=== PATIENT | male | born 1965 | race Caucasian/White ===

== ENCOUNTER 2017-11-30 04:44 | Emergency (ER) | payer OTHER ==
[~2017-11-30] VITALS: Ht 182.9 cm; Wt 102.1 kg
[~2017-11-30 04:44] MED LIST: APAP/CODEINE ELI5 M1 OR; ASPIR-TRIN325 MG PO; ASPIRIN325; ATENOLOL 50 MG50 M1; IBUPROFEN 800800 M1 PO; KEFLEX500 MG PO; LIPITOR40 MG PO; LISINOPRIL2.5 MG; MEDROL DOSPAK21 TA1 PO; MUCINEX TA600 MG/TA2 PO; NASONEX17 GM; NITROGLYCERIN0.4 MG; NORCO 5-325 TA1 EACH PO; OMEGA-3 FISH O1 EAC4; ONDANSETRON HCL4 M2 PO; PATANASE30.5 GM NS; PENICILLIN VK500 M1 PO; PENICILLIN VK500 MG PO; PLAVIX 75 MG TA75 MG; PT UNSURE OF MEDS; TRIAM60 TP; XANAX 0.5 MG0.5 M1 PO; ZOCOR40 MG; ZOLOFT25 MG PO; ZPAK PO
[2017-11-30 05:59] LABS: URINE BILIRUBIN NEGATIVE (Negative); URINE BLOOD NEGATIVE (Negative); URINE CLARITY CLEAR; URINE COLOR YELLOW; URINE GLUCOSE-RANDOM* NEGATIVE (Negative); URINE KETONES NEGATIVE (Negative); URINE NITRITE-REFLEX NEGATIVE (Negative); URINE PROTEIN (DIPSTICK) NEGATIVE (Negative); URINE SPECIFIC GRAVITY 1.015 (1.005-1.035); URINE UROBILINOGEN 0.2 E.U./dl (0.2-1.0)
[2017-11-30 06:02] LABS: URINE LEUKOCYTES-REFLEX TRACE (Negative)
[2017-11-30 06:07] LABS: AMP/METHAMP Negative (Negative); BARBITURATES Negative (Negative); BENZODIAZEPINES Negative (Negative); COCAINE Negative (Negative); METHADONE Negative (Negative); OPIATES Negative (Negative); PCP Negative (Negative)
[2017-11-30] MEDS ORDERED: XANAX 0.5 MG0.5 MG PO (06:17)
[2017-11-30 07:11] LABS: HEMATOCRIT 44.4 % (42.0-52.0); HEMOGLOBIN 15.2 gm/dL (14.0-18.0); MCH 29.8 pg (26.0-34.0); MCHC 34.2 g/dL (28.0-37.0); MCV 87.2 fL (80.0-100.0); RBC 5.09 mil/uL (4.50-6.00); RDW 13.7 % (10.5-14.5); WBC 11.4 thou/uL (4.0-11.0)
[2017-11-30 07:19] LABS: ANION GAP 11 mmol/L (7-16); BUN 15 mg/dL (7-18); CALCIUM 9.3 mg/dL (8.5-10.1); CHLORIDE 106 mmol/L (98-107); CO2 24 mmol/L (21-32); CREATININE 1.5 mg/dL (0.7-1.3); GLUCOSE 105 mg/dL (74-106); POTASSIUM 4.1 mmol/L (3.5-5.1); SODIUM 141 mmol/L (136-145)
[2017-11-30 07:23] LABS: SALICYLATE < 2.8 mg/dL (2.8-20.0)
== END 2017-11-30 11:35 | disposition home or self-care (01) ==
LOC: ER 04:44
PROVIDERS: Emergency Medicine
DX: M79.641 Pain in right hand (principal); F41.9 Anxiety disorder, unspecified; G80.9 Cerebral palsy, unspecified; F10.99 Alcohol use, unspecified with unspecified alcohol-induced disorder; Z95.5 Presence of coronary angioplasty implant and graft; Z87.891 Personal history of nicotine dependence; Z88.6 Allergy status to analgesic agent; Z88.5 Allergy status to narcotic agent

== ENCOUNTER 2017-12-13 06:47 | Emergency (ER) | payer OTHER ==
[~2017-12-13] VITALS: Ht 182.9 cm; Wt 104.3 kg
[~2017-12-13 06:47] MED LIST changes: +XANAX 0.5 MG0.5 MG PO
[2017-12-13] MEDS ORDERED: IBUPROFEN 800800 MG PO (07:33)
== END 2017-12-13 07:45 | disposition home or self-care (01) ==
LOC: ER 06:47
DX: S86.911A Strain of unspecified muscle(s) and tendon(s) at lower leg level, right leg, initial encounter (principal); S86.912A Strain of unspecified muscle(s) and tendon(s) at lower leg level, left leg, initial encounter; Z87.891 Personal history of nicotine dependence; Z88.1 Allergy status to other antibiotic agents; Z88.5 Allergy status to narcotic agent; X58.XXXA Exposure to other specified factors, initial encounter; Y93.89 Activity, other specified; Y92.89 Other specified places as the place of occurrence of the external cause; Y99.8 Other external cause status

== ENCOUNTER 2018-01-09 04:31 | Emergency (ER) | payer OTHER ==
[~2018-01-09] VITALS: Ht 182.9 cm; Wt 102.1 kg
--- NOTE | ~2018-01-09 | EKG ---
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
[~2018-01-09 04:31] MED LIST changes: +IBUPROFEN 800800 MG PO
[2018-01-09 05:05] LABS: HEMATOCRIT 45.6 % (42.0-52.0); HEMOGLOBIN 15.6 gm/dL (14.0-18.0); MCH 30.3 pg (26.0-34.0); MCHC 34.3 g/dL (28.0-37.0); MCV 88.5 fL (80.0-100.0); RBC 5.16 mil/uL (4.50-6.00); RDW 13.9 % (10.5-14.5); WBC 10.4 thou/uL (4.0-11.0)
[2018-01-09 05:13] LABS: ANION GAP 12 mmol/L (7-16); BUN 18 mg/dL (7-18); CHLORIDE 104 mmol/L (98-107); CO2 24 mmol/L (21-32); CREATININE 1.4 mg/dL (0.7-1.3); GLUCOSE 111 mg/dL (74-106); POTASSIUM 3.3 mmol/L (3.5-5.1); SODIUM 140 mmol/L (136-145)
[2018-01-09 05:19] LABS: ALBUMIN 3.8 g/dL (3.4-5.0); DIRECT BILIRUBIN < 0.1 mg/dL (<0.1-0.3); LIPASE 387 U/L (73-393); SGOT 16 U/L (15-37); SGPT 27 U/L (30-65); TOTAL BILIRUBIN 0.2 mg/dL (<0.1-1.0); TOTAL PROTEIN 7.7 g/dL (6.4-8.2)
== END 2018-01-09 06:55 | disposition home or self-care (01) ==
LOC: ER 04:31
PROVIDERS: Emergency Medicine
DX: K29.70 Gastritis, unspecified, without bleeding (principal); F10.129 Alcohol abuse with intoxication, unspecified; F41.9 Anxiety disorder, unspecified; Z87.891 Personal history of nicotine dependence; Z88.5 Allergy status to narcotic agent; Z88.8 Allergy status to other drugs, medicaments and biological substances; Z95.5 Presence of coronary angioplasty implant and graft

== ENCOUNTER 2018-08-20 17:37 | Emergency (ER) | payer OTHER ==
[~2018-08-20] VITALS: Ht 182.9 cm; Wt 99.3 kg
--- NOTE | ~2018-08-20 | EKG ---
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
[2018-08-20 18:31] LABS: HEMATOCRIT 41.4 % (42.0-52.0); HEMOGLOBIN 14.2 gm/dL (14.0-18.0); MCH 30.5 pg (26.0-34.0); MCHC 34.3 g/dL (28.0-37.0); MCV 88.9 fL (80.0-100.0); RBC 4.66 mil/uL (4.50-6.00); RDW 13.4 % (10.5-14.5); WBC 9.5 thou/uL (4.0-11.0)
[2018-08-20 18:39] LABS: URINE BILIRUBIN NEGATIVE (Negative); URINE BLOOD NEGATIVE (Negative); URINE CLARITY CLEAR; URINE COLOR YELLOW; URINE GLUCOSE-RANDOM* NEGATIVE (Negative); URINE KETONES NEGATIVE (Negative); URINE LEUKOCYTES NEGATIVE (Negative); URINE NITRITE NEGATIVE (Negative); URINE PROTEIN (DIPSTICK) TRACE (Negative); URINE SPECIFIC GRAVITY 1.025 (1.005-1.035); URINE UROBILINOGEN 0.2 E.U./dl (0.2-1.0)
[2018-08-20 18:44] LABS: ANION GAP 7 mmol/L (7-16); BUN 19 mg/dL (7-18); CALCIUM 9.4 mg/dL (8.5-10.1); CHLORIDE 105 mmol/L (98-107); CO2 25 mmol/L (21-32); CREATININE 1.6 mg/dL (0.7-1.3); GLUCOSE 94 mg/dL (74-106); POTASSIUM 3.6 mmol/L (3.5-5.1); SODIUM 137 mmol/L (136-145)
[2018-08-20 18:53] LABS: TROPONIN-I <0.06 ng/mL (<0.06)
[2018-08-20 19:35] VITALS: BP 148/88
== END 2018-08-20 19:37 | disposition home or self-care (01) ==
LOC: ER 17:37
PROVIDERS: Physician Assistant
DX: F41.9 Anxiety disorder, unspecified (principal); R42 Dizziness and giddiness; Z95.5 Presence of coronary angioplasty implant and graft; Z87.891 Personal history of nicotine dependence; Z88.1 Allergy status to other antibiotic agents; Z88.5 Allergy status to narcotic agent

== ENCOUNTER 2019-04-04 11:33 | Emergency (ER) | payer OTHER ==
[~2019-04-04] VITALS: Ht 182.9 cm; Wt 103.0 kg
[2019-04-04 11:52] VITALS: BP 123/82
== END 2019-04-04 12:18 | disposition home or self-care (01) ==
LOC: ER 11:33
DX: F41.9 Anxiety disorder, unspecified (principal); G80.9 Cerebral palsy, unspecified; Z87.891 Personal history of nicotine dependence; Z88.5 Allergy status to narcotic agent

== ENCOUNTER 2020-07-20 21:21 | Emergency (ER) | payer OTHER ==
[~2020-07-20] VITALS: Ht 182.9 cm; Wt 102.1 kg
[2020-07-20 22:07] VITALS: BP 147/82
== END 2020-07-20 22:33 | disposition home or self-care (01) ==
LOC: ER 21:21
DX: F41.0 Panic disorder [episodic paroxysmal anxiety] (principal); Z95.5 Presence of coronary angioplasty implant and graft; Z79.899 Other long term (current) drug therapy; Z79.82 Long term (current) use of aspirin; Z88.6 Allergy status to analgesic agent; Z87.891 Personal history of nicotine dependence

== ENCOUNTER 2021-04-02 02:41 | Emergency (ER) | payer OTHER ==
[~2021-04-02] VITALS: Ht 182.9 cm; Wt 102.1 kg
--- NOTE | ~2021-04-02 | EMS ---
[place] [id number] [place] Patient Care Report Name: LEIGHTON RAGSDALE Room #: DEP ROSARIO Levi#: [id number] Admission: 04/02/21 Attend Phys: Discharge: 04/02/21 Date of : 65 Report #: [id number] THIS REPORT FOR: //name// Report Transmitted: 04/02/2021 23:00 EMS Care Summary [place], [place]/[facility] Incident [id number] @ 04/02/2021 02:10 Incident Location [address] [place] [address] Patient LEIGHTON RAGSDALE Male, 56 Years 1965 Patient Address [address] [address] [place] [id number] Patient History Cardiac Arrest,Cerebral Palsy, Patient Allergies No known allergies, Patient Medications Xanax, Chief Complaint anxiety Disposition Transported No Lights/[place] Reason Psychiatric Problem/Abnormal Behavior/Suicide Attempt Transported To [facility] Narrative Dispatched out for a psych arrived at patient outside waving ems down complaint was anxiety and could not clam himself ,walked to [place] sat him on bench and [address] [address] EMS Patient Care Report Name: LEIGHTON RAGSDALE Room #: DEP ER Dale.#: [id number] Admission: 04/02/21 Attend Phys: Discharge: 04/02/21 Date of : 65 Report #: [id number] took vitals transported with out incident. Initial Vitals @02:34P: 67,R: 17,BP: 136/88,Pain: 0/10,GCS: 15,SpO2: 94,Revised Trauma: 12, @02:36P: 63,R: 17,BP: 118/83,Pain: 0/10,GCS: 15,SpO2: 93,Revised Trauma: 12, Assessments @02:26MENTAL:Other,SKIN:No Abnormalities,HEENT:Head/Face: No Abnormalities,Eyes: No Abnormalities,Neck/Airway: No Abnormalities,LUNG SOUNDS:ABDOMEN:PELVIS//GI:EXTREMITIES:Left Arm: No Abnormalities,Right Arm: No Abnormalities,Left Leg: No Abnormalities,Right Leg: No Abnormalities,PULSE:NEURO:No Abnormalities, Impression Anxiety reaction/Emotional upset Procedures @02:26ALS AssessmentResponse: UnchangedSucceeded@02:26BLS AssessmentResponse: Unchanged Timeline 02:07,Call Received 02:07,Dispatch Notified 02:10,Dispatched 02:12,En Route 02:26,At Patient 02:26,On Scene 02:26,BLS Assessment,Response: Unchanged 02:26,ALS Assessment,Response: UnchangedSucceeded, 02:29,Depart Scene 02:34,BP: 136/88 M,PULSE: 67,RR: 17 R,SPO2: 94 Ox,ETCO2: ,BG: ,PAIN: 0,GCS: 15, 02:36,BP: 118/83 M,PULSE: 63,RR: 17 R,SPO2: 93 Ox,ETCO2: ,BG: ,PAIN: 0,GCS: 15, 02:38,At Destination 03:00,Call Closed Disclaimer [email or web address] Copyright 2020 [employer] This EMS Care Summary contains data elements from the applicable legal record (which may be displayed differently). It is designed to provide pertinent information for the following purposes: continuity of care, clinical quality, and state data reporting. The complete legal record is available to ED staff and administrators of the receiving hospital in [place] Patient Tracker. All data is provided "as is."
[2021-04-02] MEDS ORDERED: XANAX 1 MG TABLE1 MG PO (04:02)
[2021-04-02 05:04] VITALS: BP 148/85
--- NOTE | 2021-04-02 08:50 | EKG ---
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
== END 2021-04-02 05:55 | disposition home or self-care (01) ==
LOC: ER 02:41
DX: F41.9 Anxiety disorder, unspecified (principal); Z76.0 Encounter for issue of repeat prescription; Z87.891 Personal history of nicotine dependence; Z88.5 Allergy status to narcotic agent; Z79.82 Long term (current) use of aspirin; Z79.899 Other long term (current) drug therapy

== ENCOUNTER 2021-05-31 04:36 | Emergency (ER) | payer OTHER ==
[~2021-05-31] VITALS: Ht 182.9 cm; Wt 102.1 kg
[~2021-05-31 04:36] MED LIST changes: +XANAX 1 MG TABLE1 MG PO
[2021-05-31] MEDS ORDERED: FLONASE ALLERG9.9 ML NASAL (05:33)
[2021-05-31] MEDS ORDERED: FLONASE 0.05%50 MCG NARES (05:39)
[2021-05-31 05:42] VITALS: BP 164/89
== END 2021-05-31 05:42 | disposition home or self-care (01) ==
LOC: ER 04:36
DX: J30.9 Allergic rhinitis, unspecified (principal); F17.210 Nicotine dependence, cigarettes, uncomplicated; Z88.8 Allergy status to other drugs, medicaments and biological substances

== ENCOUNTER 2021-06-03 02:52 | Emergency (ER) | payer OTHER ==
[~2021-06-03] VITALS: Ht 182.9 cm; Wt 102.1 kg
[~2021-06-03 02:52] MED LIST changes: +FLONASE 0.05%50 MCG NARES; +FLONASE ALLERG9.9 ML NASAL
[2021-06-03 02:55] VITALS: BP 145/76
[2021-06-03] MEDS ORDERED: XANAX 0.5 MG0.5 M1 PO (03:17)
== END 2021-06-03 03:26 | disposition home or self-care (01) ==
LOC: ER 02:52
DX: F41.9 Anxiety disorder, unspecified (principal); Z79.899 Other long term (current) drug therapy; Z79.82 Long term (current) use of aspirin; Z79.1 Long term (current) use of non-steroidal anti-inflammatories (NSAID); Z88.6 Allergy status to analgesic agent; Z88.8 Allergy status to other drugs, medicaments and biological substances; Z87.891 Personal history of nicotine dependence